=== PATIENT | male | born 1955 | race Caucasian/White ===

== ENCOUNTER → 2019-04-12 | Day surgery (SDC) | payer BC ==
[~2019-04-12] MED LIST: ALPR0.254 PO; ATORVASTATIN CA80 MG PO; ESCITALOPRAM OX20 MG PO; IV RINGERS,LACTATED 1000ML 1,000 ML IV ONE; LIDOCAINE 2% PF 5 ML VIAL. ONE; LISI1TAB20 PO; METF10007 PO; METO100T7 PO; OLAN5TAB9 PO; PROPOFOL 40 ML IV ONE; SPIR25TA5 PO
[2019-04-12 10:25] VITALS: BP 126/74
--- NOTE | 2019-04-13 00:32 | HP ---
ADMIT DATE: 04/12/2019 REFERRING PHYSICIAN: David Adrian MD REASON FOR CONSULTATION: History of polyps. HISTORY OF PRESENT ILLNESS: This is a 63-year-old male with past medical history significant for diabetes, hypertension, hyperlipidemia, and history of colonic polyps. He is seen for interval colon examination. Bowel habits are regular without diarrhea or constipation. There has been no melena and/or hematochezia. Weight and appetite are stable. He is otherwise without additional complaints. PAST MEDICAL HISTORY: Hyperlipidemia, hypertension, status post myocardial infarction, and diabetes. ALLERGIES: AMOXICILLIN. MEDICATIONS: Include atorvastatin, citalopram, lisinopril, hydrochlorothiazide, metformin, metoprolol, olanzapine, and spironolactone. FAMILY AND SOCIAL HISTORY: Significant for hypertension with his father. SOCIAL HISTORY: He is a nonsmoker, social drinker. PAST SURGICAL HISTORY: Knee surgery and heart catheterization. REVIEW OF SYSTEMS: Per records. PHYSICAL EXAMINATION: GENERAL: Reveals a well-nourished, well-developed male, who is alert and cooperative, in no acute distress. VITAL SIGNS: Temperature is 97.7, pulse 71, and respiratory rate is 20. HEENT: Reveals normocephalic, atraumatic head. Pupils and extraocular muscles are not tested. Sclerae are anicteric. NECK: Supple. LUNGS: Clear. CARDIOVASCULAR: S1, S2 without S3, S4, or appreciable murmur. ABDOMEN: Soft abdomen, normal bowel sounds, without appreciable hepatosplenomegaly. IMPRESSION AND PLAN: Colorectal screening with a personal history of colonic polyps is warranted at this time. Risks and benefits of procedure including risk of hemorrhage and perforation during the operation have been discussed with the patient. He is willing to proceed at this time. TUAN TIWARI MD DR: SHONDA/cee JOB#: [id number] / [id number] DAVID Sanchez MD ,
== END ==
LOC: ENDOS 08:42
PROVIDERS: ATTEND Internal Medicine Gastroenterology
DX: Z12.11 Encounter for screening for malignant neoplasm of colon (principal); K57.30 Diverticulosis of large intestine without perforation or abscess without bleeding; K64.0 First degree hemorrhoids; I10 Essential (primary) hypertension; E11.9 Type 2 diabetes mellitus without complications; I25.2 Old myocardial infarction; Z86.010 Personal history of colon polyps; Z79.84 Long term (current) use of oral hypoglycemic drugs; Z88.1 Allergy status to other antibiotic agents; Z72.89 Other problems related to lifestyle
CPT/HCPCS: 45378; J2001; J2704